=== PATIENT | female | born 1975 | race African-American/Black ===

== ENCOUNTER → 2016-07-01 | Outpatient (CLI) | payer MEDICARE, OTHER ==
[2015-05-14 04:01] VITALS: BP 138/76
[~2016-07-01] MED LIST: CYCL10TA2 PO; GABA600T2 PO; NAPR500T8 PO
--- NOTE | 2016-07-02 10:08 | KCIC ---
PROCEDURE MRI of the brain without contrast 07/01/2016 HISTORY Migraine headaches which are increasing in severity and frequency. TECHNIQUE Unenhanced T1 weighted sagittal and axial, T2 weighted axial and coronal and FLAIR, gradient echo and diffusion weighted axial images of the brain were obtained. FINDINGS The ventricles and sulci are within normal limits in size and configuration. No area of significant abnormal signal intensity is seen involving the brain parenchyma. No extra-axial fluid collection is noted. There is no MRI evidence of acute ischemia/infarction. Mild to moderate mucosal thickening is seen throughout the paranasal sinuses. There are small bilateral mastoid effusions. Normal flow voids are seen within the major vascular structures surrounding the brain parenchyma. IMPRESSION 1. Negative MRI of the brain. 2. Paranasal sinus and mastoid disease as outlined above. Electronically signed by: Kris Cain MD (July 02, 2016 10:07:16)
== END | disposition home or self-care (01) ==
LOC: KCIC MRI 16:05
PROVIDERS: ATTEND Psychiatry & Neurology Neurology with Special Qualifications in Child Neurology
DX: G43.909 Migraine, unspecified, not intractable, without status migrainosus (principal)
CPT/HCPCS: 70551

== ENCOUNTER → 2016-09-14 | Outpatient (CLI) | payer OTHER, MEDICAID ==
[2015-05-14 04:01] VITALS: BP 138/76
--- NOTE | 2016-09-14 13:27 | RAD ---
Lumbar spine, 3 views, 09/14/2016: History: Left lower back pain with sciatica The lumbar vertebral heights are well-maintained. The intervertebral disc spaces are well preserved. There is minimal marginal spurring. No fracture or dislocation is identified. The paraspinous soft tissues are unremarkable. IMPRESSION: No acute lumbar spine abnormality is detected.
== END | disposition home or self-care (01) ==
LOC: RAD 08:42
PROVIDERS: ATTEND Family Medicine
DX: M54.5 Low back pain (principal)
CPT/HCPCS: 72100

== ENCOUNTER 2016-09-17 07:50 | Emergency (ER) | payer OTHER, MEDICAID ==
[~2016-09-17] VITALS: Ht 167.6 cm; Wt 99.8 kg
[2016-09-17] MEDS ORDERED: oxyCODONE/APAP 5/325 1 TAB TABLET PO ONE (08:45)
[2016-09-17] MEDS ORDERED: KETOROLAC TROMETHAMINE 60 MG/2 ML INJ. IM ONE (08:45)
[2016-09-17] MEDS ORDERED: diazePAM 5 MG TABLET PO ONE (08:45)
--- NOTE | 2016-09-17 09:29 | RAD ---
Lumbar spine, 3 views, 09/17/2016: History: Lower back pain after a fall Comparison is made to a study from 09/14/2016. The lumbar vertebral heights are well maintained. The intervertebral disc spaces are well preserved. There is minimal marginal spurring. No fracture or dislocation is identified. IMPRESSION: No acute lumbar spine abnormality is detected.
--- NOTE | 2016-09-17 09:36 | PHYS DOC ---
Past Medical History Past Medical History: Arthritis Additional Past Medical Histor: neuropathy,tendonitis,deg.disc disease, Past Surgical History: Tubal ligation Additional Past Surgical Histo: L knee surgery,partial hyst Alcohol Use: Occasionally Drug Use: Marijuana Adult General Chief Complaint Chief Complaint: LOWER BACK PAIN OR INJURY HPI HPI Patient is a 41 year old female presenting to the emergency department for evaluation of low back pain that started 1 week ago after she fell tripped landing on her butt and she has had pain shooting down her left leg since that time. She says that she saw her primary care provider and was put on naproxen and a muscle relaxant. She says that is helping somewhat however she is still having pain. She denies any chest abdomen pelvis or extremity pain rather the pain starts in her left paraspinal muscle and radiates down her back. She denies any unilateral weakness numbness tingling bowel or bladder incontinence and she was able to emulate with a normal gait in the room. Review of Systems Review of Systems Constitutional: Denies fever or chills [] GI: Denies abdominal pain, nausea, vomiting, bloody stools or diarrhea [] : Denies dysuria or hematuria [] Musculoskeletal: + back pain. No joint pain [] Neurologic: Denies headache, focal weakness or sensory changes [] Current Medications Current Medications Current Medications Medications (Trade) Dose Ordered Sig/Alfred Start Time Stop Time Status Last Admin Dose Admin Diazepam (Valium) 5 mg 1X ONCE 09/17/16 08:45 09/17/16 08:46 DC Ketorolac Tromethamine (Toradol Im) 60 mg 1X ONCE 09/17/16 08:45 09/17/16 08:46 DC Oxycodone/ Acetaminophen (Percocet 5/325) 2 tab 1X ONCE 09/17/16 08:45 09/17/16 08:46 DC Allergies Allergies Allergies Coded Allergies Type Severity Reaction Last Updated Verified No Known Drug Allergies 09/20/13 No Physical Exam Physical Exam Constitutional: Well developed, well nourished, no acute distress, non-toxic appearance. [] Cardiovascular:Heart rate regular rhythm, no murmur [] Lungs & Thorax: Bilateral breath sounds clear to auscultation [] Back: Positive left lumbar paraspinal tenderness to palpation Extremities: No tenderness, no cyanosis, no clubbing, ROM intact, no edema. [] Neurologic: Alert and oriented X 3, normal motor function, normal sensory function, no focal deficits noted. [] EKG EKG [] Radiology/Procedures Radiology/Procedures Lumbar spine, 3 views, 09/17/2016: History: Lower back pain after a fall Comparison is made to a study from 09/14/2016. The lumbar vertebral heights are well maintained. The intervertebral disc spaces are well preserved. There is minimal marginal spurring. No fracture or dislocation is identified. IMPRESSION: No acute lumbar spine abnormality is detected. DICTATED and SIGNED BY: COLBY NGUYEN MD DATE: 09/17/16924 Course & Med Decision Making Course & Med Decision Making Patient with left lumbar radiculopathy likely from the fall but there is no structural damage on x-ray. She has no red flag signs or symptoms necessitating an emergent MRI. Given patient appears well with normal vital signs benign physical exam and workup she'll be discharged in stable condition with instructions to follow with a primary care provider for possible physical therapy and MRI and come back to the ER sooner with any worsening pain weakness incontinence or other general concerns. Dragon Disclaimer Dragon Disclaimer This electronic medical record was generated, in whole or in part, using a voice recognition dictation system. Departure Departure Impression: Primary Impression: Low back pain Additional Impression: Lumbar radiculopathy, acute Disposition: 01 HOME, SELF-CARE Condition: GOOD Referrals: ALEKSANDRA BASSETT MD (PCP) Patient Instructions: Back Pain, Adult Scripts Hydrocodone/Apap 5-325 (NORCO 5-325 TABLET) 1 Each Tablet 1 TAB PO PRN Q6HRS Y for PAIN, #14 TAB 0 Refills Prov: ANNA FIERRO DO 09/17/16 Problem Qualifiers Primary Impression: Low back pain Chronicity: acute Back pain laterality: left Sciatica presence: with sciatica Sciatica laterality: sciatica of left side Qualified Codes: M54.42 - Lumbago with sciatica, left side ANNA FIERRO DO Sep 17, 2016 09:36
[2016-09-17] MEDS ORDERED: HYDR-971 PO (09:57)
[2016-09-17 11:00] VITALS: BP 136/73
== END 2016-09-17 12:09 | disposition home or self-care (01) ==
LOC: ER 07:50
DX: M54.42 Lumbago with sciatica, left side (principal); M54.16 Radiculopathy, lumbar region; M19.90 Unspecified osteoarthritis, unspecified site; F12.10 Cannabis abuse, uncomplicated; G62.9 Polyneuropathy, unspecified; W01.0XXA Fall on same level from slipping, tripping and stumbling without subsequent striking against object, initial encounter; Y93.89 Activity, other specified; Y92.89 Other specified places as the place of occurrence of the external cause; Y99.8 Other external cause status
CPT/HCPCS: 72100; 96372; 99284; J1885

== ENCOUNTER → 2016-10-06 | Outpatient (CLI) | payer MEDICAID, OTHER ==
[2016-09-17 11:00] VITALS: BP 136/73
[~2016-10-06] MED LIST changes: +HYDR-971 PO
--- NOTE | 2016-10-06 11:25 | RAD ---
MRI Lumbar Spine without contrast History: Low back pain, left leg radiculopathy for one month Technique: Multiplanar, multi sequential noncontrast MR imaging was performed of the lumbar spine. Contrast: None Comparison: September 26, 2013 Findings: Lumbar vertebral body stature and AP alignment are maintained. There is a mild degenerative disc disease L5-S1, posterior annular tear at this level. Conus terminates normally at L1. There is no significant marrow edema. L2-L3: There is now very shallow protrusion in the far left lateral recess with associated annular tear. There is minimal indentation upon the ventral thecal sac with very mild narrowing of the left lateral recess. Neural foramina are adequate. L3-L4: There is again mild buckling of the ligamentum flavum. The spinal canal is overall adequate. There is now very shallow protrusion in the distal inferior aspect of the left neural foramen and proximal left extraforaminal region, near the extraforaminal left L3 nerve root without significant displacement. Right neural foramen is adequate. L4-L5: Spinal canal and neural foramina are overall adequate. There is again mild buckling of the ligamentum flavum. There is very minimal disc osteophyte complex in the inferior right neural foramen. L5-S1: There is again very minimal disc osteophyte complex, superimposed very shallow protrusion without significant impingement of the descending S1 nerve roots or spinal stenosis. Neural foramina are adequate. Impression: 1. Compared with the 2013 exam, there is now very mild narrowing of the far left lateral recess at L2-3 by shallow protrusion. 2. There is now shallow protrusion in the distal inferior aspect of the left L3-4 neural foramen and left extraforaminal region with minimal narrowing of the left neural foramen, near undersurface of the extraforaminal left L3 nerve root without significant displacement. 3. There is again mild degenerative disc disease at L5-S1. Electronically signed by: Jone Johnson MD (10/06/2016 11:22 AM) [email or web address]
== END | disposition home or self-care (01) ==
LOC: MRI 09:55
PROVIDERS: ATTEND Family Medicine
DX: M54.16 Radiculopathy, lumbar region (principal); M51.37 Other intervertebral disc degeneration, lumbosacral region
CPT/HCPCS: 72148

== ENCOUNTER → 2017-01-11 | Outpatient (CLI) | payer MEDICARE, OTHER ==
[~2017-01-11] MED LIST changes: +GADOBUTROL 7.5 MMOL/7.5 ML VIAL INT ART ONE; +IOHEXOL 300 MG/ML 50 ML VIAL. INT ART ONE; +LIDOCAINE 1% Multi-Dose 20 ML VIAL. ID ONE
--- NOTE | 2017-01-11 14:20 | KCIC ---
Fluoroscopic guided left shoulder injection dated 01/11/2017: No comparison available. Clinical Indication: Gadolinium injection for MRI. Technical factors: The potential benefits and risks of the procedure were discussed with the patient and informed consent was obtained. The anterior left shoulder was prepped and draped in a sterile fashion. After local anesthesia, a 22-gauge spinal needle was inserted into the left shoulder joint using an anterior approach.Following negative aspiration, 15 cc's of a solution of 5cc Omnipaque contrast, 5 cc 1% lidocaine, 10 cc normal saline, and 0.1 cc gadolinium was injected without difficulty. The needle was then removed and a dry sterile dressing was applied. The patient was then sent to the MR suite for imaging. The patient tolerated the procedure well. 00:51 minutes fluoroscopic time used for the study. One image. Findings: Single fluoroscopic image shows needle tip at the medial inferior 1/3 of the humeral head. Contrast material extends into the joint space. Impression: Fluoroscopic guided left shoulder injection for MRI as described above. Electronically signed by: Jama Trejo MD (01/11/2017 2:16 PM) [email or web address]
--- NOTE | 2017-01-11 14:37 | KCIC ---
MR arthrogram left shoulder 01/11/2017. No comparison available. Clinical indication: History of prior surgery now with pain and limited range of motion. Technique: Fat-saturated T1 weighted imaging performed in the coronal, axial and abduction external rotation planes following the intra-articular injection of dilute gadolinium. Injection portion of the study will be reported separately. In addition, standard T2-weighted imaging performed in 3 planes along with a nonfat saturated T1 sagittal sequence. FINDINGS: Adequate distention of the joint space with contrast material. There is intermediate T2 signal throughout the supraspinatus and infraspinatus portions of the rotator cuff. Mild articular surface fraying of the supraspinatus and infraspinatus tendon footplate with no evidence of recurrent full-thickness tear or cuff retraction. Subscapularis is intact. No significant contrast material within the subacromial/subdeltoid bursa. Evidence of prior subacromial decompression. Mild hypertrophic change of the AC joint. No significant undersurface spurring. No subacromial/subdeltoid bursal effusion. There is mild increased signal within the substance of the proximal long head biceps tendon. Extra articular portion courses within the bicipital groove. Biceps anchor intact. There is blunted morphology and fraying of the posterior superior labrum. The posterior and anterior labrum are deficient in size. No discrete tear. The articular cartilage is intact. No apparent loose body. Suprascapular and spinoglenoid notches are clear. No significant muscle edema or muscle atrophy. IMPRESSION: 1. Rotator cuff tendinopathy with mild articular surface partial tearing. No evidence of recurrent full-thickness tear or cuff retraction. 2. Blunted morphology and fraying of the posterior labrum suggestive of degenerative labral tear and/or prior tear with labral debridement. No linear defect to suggest acute tear. 3. Mild proximal biceps tendinosis. 4. Mild AC joint arthropathy with evidence of prior subacromial decompression. Electronically signed by: Jama Trejo MD (01/11/2017 2:34 PM) [id number]
== END | disposition home or self-care (01) ==
LOC: KCIC 12:18
PROVIDERS: ATTEND Orthopaedic Surgery
DX: M75.102 Unspecified rotator cuff tear or rupture of left shoulder, not specified as traumatic (principal); M12.812 Other specific arthropathies, not elsewhere classified, left shoulder; Z98.890 Other specified postprocedural states
CPT/HCPCS: 73040; 73222; A9585; Q9967

== ENCOUNTER → 2018-01-27 | Outpatient (CLI) | payer OTHER ==
[~2018-01-27] MED LIST changes: -GADOBUTROL 7.5 MMOL/7.5 ML VIAL INT ART ONE; +HYDR-3164 PO; -HYDR-971 PO; -IOHEXOL 300 MG/ML 50 ML VIAL. INT ART ONE; -LIDOCAINE 1% Multi-Dose 20 ML VIAL. ID ONE
--- NOTE | 2018-01-27 10:59 | KCIC ---
MR of the right elbow Indication: Right elbow pain medially since a fall down the stairs last October. Technique: Standard multiplanar sequences are obtained. FINDINGS: Artifact: No significant image degradation. Anterior: Biceps tendon and brachialis tendon are intact. Posterior: The triceps tendon and insertion are intact. Medial: Mild heterogeneous signal within the common flexor tendon compatible with tendinosis and partial tearing, no more than 50%. The proximal ulnar collateral ligament demonstrates hyperintense T2 signal and thickening at its attachment to the humeral epicondyle with minimal subjacent marrow edema. No evidence of ligamentous laxity or displacement. The distal ligament appears intact. Lateral: Common extensor tendon intact. Lateral collateral ligament complex appears intact. Fluid: No significant effusion. Joints: No advanced DJD. Bones: No focal lesion. No acute fracture. Soft tissues: No concerning edema or fluid accumulation Ulnar nerve: Mildly hyperintense, borderline thickened. Impression: 1. Increased T2 signal and thickening at the proximal ulnar collateral ligament, compatible with sprain/tear. No ligamentous placement. There is also evidence of common flexor tendinosis without high-grade tear or rupture. 2. Mild hyperintense signal and borderline thickening of the ulnar nerve, compatible with mild neuritis. Electronically signed by: Jama Mayo MD (01/27/2018 10:55 AM) [email or web address]
== END | disposition home or self-care (01) ==
LOC: KCIC MRI 09:12
PROVIDERS: ATTEND Family Medicine
DX: M25.521 Pain in right elbow (principal)
CPT/HCPCS: 73221

== ENCOUNTER → 2018-05-31 | Outpatient (CLI) | payer OTHER ==
[~2018-05-31] MED LIST changes: +CONTRAST GIVEN. MC PRN; -GABA600T2 PO; +GABA600T7 PO; +IOHEXOL 300 MG/ML 100ML VIAL. IV ONE
--- NOTE | 2018-05-31 12:34 | RAD ---
CT of the chest with contrast, 05/31/2018: HISTORY: Left-sided pain Multidetector CT imaging was performed following an IV bolus injection of iodinated contrast material. The thoracic aorta is unremarkable. There are mediastinal calcifications compatible with old granulomatous disease. No mediastinal adenopathy is seen. A calcified granuloma is present anteriorly in the right middle lobe. No pulmonary mass or significant infiltrate is seen. There is no evidence of pleural fluid. A small subcentimeter low-density lesion in the right lobe of the liver is too small to definitively characterize but is most likely a cyst. IMPRESSION: 1. Old healed granulomatous disease in the chest. 2. The chest is otherwise unremarkable. PQRS Compliance Statement: One or more of the following individualized dose reduction techniques were utilized for this examination: 1. Automated exposure control 2. Adjustment of the mA and/or kV according to patient size 3. Use of iterative reconstruction technique Electronically signed by: Nabor Matthews MD (05/31/2018 12:31 PM) [facility]
== END | disposition home or self-care (01) ==
LOC: CT 10:41
PROVIDERS: ATTEND Family Medicine
DX: J84.10 Pulmonary fibrosis, unspecified (principal); K76.89 Other specified diseases of liver
CPT/HCPCS: 71260; Q9967